=== PATIENT | female | born 1960 | race Caucasian/White ===

== ENCOUNTER 2018-05-05 09:49 | Emergency (ER) | payer OTHER ==
--- NOTE | 2018-05-05 09:55 | EDPHY ---
H & P Stated Complaint: Intermittent chest discomfort since last night Time Seen by Provider: 05/05/18 09:54 HPI/ROS: CHIEF COMPLAINT: Right-sided chest pain HISTORY OF PRESENT ILLNESS: The patient presents to the ED with a 1 day history of intermittent sharp right-sided chest pain. The patient reports her symptoms are worsened with movement. She also has had some mild symptoms of indigestion. 2 days ago she was started on an antibiotic for a several week history of a chronic cough. She reports that she has had no asymmetric calf pain or swelling. She denies any prior history of PE or DVT. She does state that her pain is not pleuritic. The patient did have some right upper quadrant pain last night. She denies any right upper quadrant pain currently. She denies any abdominal pain, vomiting or diarrhea. She currently currently is asymptomatic. She does report symptoms of mild dyspnea. REVIEW OF SYSTEMS: A comprehensive 10 point review of systems is otherwise negative aside from elements mentioned in the history of present illness. Source: Patient Exam Limitations: No limitations - Personal History Tetanus Vaccine Date: 2010 - Medical/Surgical History Hx Asthma: No Hx Chronic Respiratory Disease: No Hx Diabetes: No Hx Cardiac Disease: No Hx Renal Disease: No Hx Cirrhosis: No Hx Alcoholism: No Hx HIV/AIDS: No Hx Splenectomy or Spleen Trauma: No Other PMH: hypothyroid - Social History Smoking Status: Former smoker - Physical Exam Exam: General Appearance: Alert, no distress Eyes: Pupils equal and round no pallor or injection ENT, Mouth: Mucous membranes moist Respiratory: There are no retractions, lungs are clear to auscultation Cardiovascular: Regular rate and rhythm Gastrointestinal: Abdomen is soft and nontender, no masses, bowel sounds normal Neurological: A&O, normal motor function, normal sensory exam, normal cranial nerves Skin: Warm and dry, no rashes Musculoskeletal: Neck is supple nontender Extremities: symmetrical, full range of motion Psychiatric: Patient is oriented X 3, there is no agitation Constitutional: Initial Vital Signs Temperature (C) 36.7 C 05/05/18 09:52 Heart Rate 78 05/05/18 09:52 Respiratory Rate 16 05/05/18 09:52 Blood Pressure 140/80 H 05/05/18 09:52 O2 Sat (%) 95 05/05/18 09:52 O2 Delivery Mode Room Air Allergies/Adverse Reactions: No Known Allergies Allergy (Verified 04/20/16 10:06) Home Medications: Medication Instructions Recorded Levothyroxine 11/01/14 Medical Decision Making - Diagnostics EKG Interpretation: EKG: Complete interpretation has been separately recorded in the [facility] archive. Summary impression: Sinus rhythm, rate 69 Imaging Results: Imaging Impressions Abdomen Ultrasound 05/05/18 11:16 Impression: Normal RUQ ultrasound. Findings and recommendations discussed with Peter Zee at 12:11 pm hour, 05/05/2018. Final report concurs with initial preliminary interpretation. ED Course/Re-evaluation: The patient presents to the ED with vague right-sided chest pain. The patient has no risk factors for cardiac disease. Her initial EKG demonstrates no evidence of ischemia. The patient's troponin was also noted to be normal. The patient did have some right upper abdominal pain earlier in the day. Her liver function test were noted to be slightly elevated. The patient's ultrasound however demonstrated no evidence of biliary colic. The patient's D-dimer is negative which I feel adequately excludes pulmonary embolism. Patient did receive IV fluid rehydration in the emergency department. She was re-evaluated at 12:30 p.m.. I reviewed the results of her workup. At this point time I do feel the patient is low risk for acute coronary syndrome. She has a heart score of 1. I do feel it is reasonable to have the patient follow up with Cardiology for consideration of a treadmill stress test. The patient will be discharged with instructions to return to the ED for any worsening symptoms or other concerns. Differential Diagnosis: Differential diagnosis considered includes esophageal spasm, peptic ulcer disease, cholelithiasis, acute coronary syndrome, gastroesophageal reflux, pulmonary embolism - Data Points Laboratory Results: Laboratory Results 05/05/18 10:05 05/05/18 10:05 05/05/18 05/05/18 05/05/18 11:05 10:05 10:05 WBC 7.35 10^3/uL 10^3/uL (3.80-9.50) RBC 4.72 10^6/uL 10^6/uL (4.18-5.33) Hgb 14.5 g/dL g/dL (12.6-16.3) Hct 43.4 % % (38.0-47.0) MCV 91.9 fL fL (81.5-99.8) MCH 30.7 pg pg (27.9-34.1) MCHC 33.4 g/dL g/dL (32.4-36.7) RDW 13.1 % % (11.5-15.2) Plt Count 295 10^3/uL 10^3/uL (150-400) MPV 9.1 fL fL (8.7-11.7) Neut % (Auto) 64.4 % % (39.3-74.2) Lymph % (Auto) 25.3 % % (15.0-45.0) [place] % (Auto) 7.8 % % (4.5-13.0) Eos % (Auto) 1.5 % % (0.6-7.6) Baso % (Auto) 0.7 % % (0.3-1.7) Nucleat RBC Rel Count 0.0 % % (0.0-0.2) Absolute Neuts (auto) 4.74 10^3/uL 10^3/uL (1.70-6.50) Absolute Lymphs (auto) 1.86 10^3/uL 10^3/uL (1.00-3.00) Absolute Monos (auto) 0.57 10^3/uL 10^3/uL (0.30-0.80) Absolute Eos (auto) 0.11 10^3/uL 10^3/uL (0.03-0.40) Absolute Basos (auto) 0.05 10^3/uL 10^3/uL (0.02-0.10) Absolute Nucleated RBC 0.00 10^3/uL 10^3/uL (0-0.01) Immature Gran % 0.3 % % (0.0-1.1) Immature Gran # 0.02 10^3/uL 10^3/uL (0.00-0.10) D-Dimer < 0.27 ug/mLFEU ug/mLFEU (0.00-0.50) Sodium 138 mEq/L mEq/L (135-145) Potassium 4.0 mEq/L mEq/L (3.3-5.0) Chloride 103 mEq/L mEq/L (97-110) Carbon Dioxide 27 mEq/l mEq/l (22-31) Anion Gap 8 mEq/L mEq/L (6-14) BUN 12 mg/dL mg/dL (7-23) Creatinine 0.8 mg/dL mg/dL (0.6-1.0) Estimated GFR > 60 Glucose 109 mg/dL H mg/dL (70-100) Calcium 9.3 mg/dL mg/dL (8.5-10.4) Total Bilirubin 0.5 mg/dL mg/dL (0.1-1.4) Conjugated Bilirubin 0.2 mg/dL mg/dL (0.0-0.5) Unconjugated Bilirubin 0.3 mg/dL mg/dL (0.0-1.1) AST 52 IU/L H IU/L (14-46) ALT 78 IU/L H IU/L (9-52) Alkaline Phosphatase 110 IU/L IU/L (38-126) Troponin I < 0.012 ng/mL ng/mL (0.000-0.034) Total Protein 7.5 g/dL g/dL (6.3-8.2) Albumin 4.1 g/dL g/dL (3.5-5.0) Lipase 66 IU/L IU/L (23-300) Departure - Departure Disposition: Home, Routine, Self-Care Clinical Impression: Chest pain Condition: Good Instructions: Chest Pain (ED) Additional Instructions: 1. Based upon the testing done in the Emergency Department today we see no evidence of a heart attack. 2. We are unable to fully exclude coronary artery disease based upon the testing available in the Emergency Department. 3. For this reason, we would like you to be seen by cardiology for consideration of additional testing within the next 3 days. 4. Please contact the typing section chief you have been referred to schedule this appointment as soon as possible. Their offices are typically open from 8:30am- 5pm M-F. 5. Please return to the Emergency Department immediately for any recurrent chest pain, difficulty breathing or other concerns. Referrals: Dorothy Wagoner MD [Medical Doctor] - As per Instructions
--- NOTE | 2018-05-05 10:18 | CPEKG ---
Test Reason : OPEN Blood Pressure : / mmHG Vent. Rate : 069 BPM Atrial Rate : 069 BPM P-R Int : 147 ms QRS Dur : 083 ms QT Int : 403 ms P-R-T Axes : 047 -30 -39 degrees QTc Int : 432 ms Sinus rhythm Left axis deviation Confirmed by Peter Zee ([id number]) on 05/05/2018 10:17:23 AM Referred By: Confirmed By:Peter Zee
[2018-05-05 10:26] LABS: PLATELET COUNT 295 10^3/uL (150-400)
[2018-05-05] MEDS: MAG HYDROX/AL HYDROX/SIMETH 30 ML UDCUP PO ONE (13:21)
[2018-05-05] MEDS: LIDOCAINE 2% VISCOUS 15 ML UDCUP PO ONE (13:21)
[2018-05-05 13:33] VITALS: BP 103/70
--- NOTE | 2018-05-09 09:41 | CPEKG ---
Test Reason : OPEN Blood Pressure : / mmHG Vent. Rate : 056 BPM Atrial Rate : 058 BPM P-R Int : 143 ms QRS Dur : 081 ms QT Int : 470 ms P-R-T Axes : 041 001 -72 degrees QTc Int : 454 ms Sinus rhythm Low voltage, precordial leads Confirmed by Peter Zee ([id number]) on 05/09/2018 9:40:23 AM Referred By: Confirmed By:Peter Zee
== END 2018-05-05 13:55 | disposition home or self-care (01) ==
DX: R07.89 Other chest pain (principal); E03.9 Hypothyroidism, unspecified; Z79.2 Long term (current) use of antibiotics; Z87.891 Personal history of nicotine dependence